=== PATIENT | male | born 1985 | race Caucasian/White ===

== ENCOUNTER 2016-07-06 07:10 | Emergency (ER) | payer OTHER ==
[2016-07-06 07:23] VITALS: TEMP 98.1; BMI 29.6
[2016-07-06] MEDS ORDERED: DIPHTH,PERTUSS(ACELL),TET VAC 0.5 ML VIAL IM ONE (08:01)
[2016-07-06] MEDS ORDERED: ACETAMINOPHEN 500 MG TABLET (FP) PO ONE (08:02)
[2016-07-06] MEDS ORDERED: ACETAMINOPHEN 325 MG TABLET (FP) ONE (08:13)
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
[2016-07-06 09:29] VITALS: BP 134/68; PULSE 81
== END 2016-07-06 09:27 | disposition home or self-care (01) ==
LOC: JER 07:10
PROC: 3E0234Z Introduction of Serum, Toxoid and Vaccine into Muscle, Percutaneous Approach (ICD-10-PCS; principal; 2016-07-06)
PROC: 0HQGXZZ Repair Left Hand Skin, External Approach (ICD-10-PCS; 2016-07-06)
DX: S61.213A Laceration without foreign body of left middle finger without damage to nail, initial encounter (principal); Y04.0XXA Assault by unarmed brawl or fight, initial encounter; Y93.89 Activity, other specified; Y92.038 Other place in apartment as the place of occurrence of the external cause; F17.210 Nicotine dependence, cigarettes, uncomplicated
CPT/HCPCS: 12001-25; 73140-TC-LT; 90471; 90715; 99282-25

== ENCOUNTER 2023-06-29 21:23 | Emergency (ER) | payer OTHER ==
[2023-06-29 21:27] VITALS: BP 134/86; PULSE 98; RESP 20; TEMP 98.5; BMI 36.0
== END 2023-06-30 00:03 | disposition home or self-care (01) ==
LOC: JERFT 21:23
DX: R50.9 Fever, unspecified (principal); R53.83 Other fatigue; R51.9 Headache, unspecified; U07.1 COVID-19
CPT/HCPCS: 0241U-QW; 87651; 99283-25